=== PATIENT | male | born 1980 | race Caucasian/White ===

== ENCOUNTER 2017-08-15 20:36 | Emergency (ER) | payer OTHER ==
[~2017-08-15] VITALS: Ht 190.5 cm; Wt 108.9 kg
[~2017-08-15 20:36] MED LIST: AZITHROMYCIN 2250 MG PO; LEVAQUIN 500 M500 MG PO; LISINOPRIL10 MG PO; MAPAP325 MG PO; NAPROSYN500 MG PO; TRAMADOL 50 MG50 MG PO; VENTOLIN HFA 1818 GM INH; [UNRECOGNIZED DRUG - REMARK]
[2017-08-15 21:25] LABS: ABSOLUTE NEUTROPHILS 5.6 thou/uL (1.4-8.2); EOSINOPHILS 3.7 % (0.0-3.0); HEMATOCRIT 44.6 % (42.0-52.0); HEMOGLOBIN 15.4 gm/dL (14.0-18.0); LYMPHOCYTES 24.1 % (24.0-44.0); MCH 29.2 pg (26.0-34.0); MCHC 34.5 g/dL (28.0-37.0); MCV 84.7 fL (80.0-100.0); MONOCYTES 8.1 % (1.0-8.0); PLATELET COUNT 226 thou/uL (150-400); POLYS 63.1 % (36.0-66.0); RBC 5.27 mil/uL (4.50-6.00); WBC 8.9 thou/uL (4.0-11.0)
[2017-08-15 22:27] LABS: ANION GAP 5 mmol/L (7-16); BUN 12 mg/dL (7-18); CALCIUM 8.1 mg/dL (8.5-10.1); CHLORIDE 106 mmol/L (98-107); CO2 32 mmol/L (21-32); CREATININE 1.1 mg/dL (0.7-1.3); GLUCOSE 106 mg/dL (74-106); POTASSIUM 4.2 mmol/L (3.5-5.1); SODIUM 143 mmol/L (136-145); URINE BILIRUBIN NEGATIVE (Negative); URINE BLOOD NEGATIVE (Negative); URINE CLARITY CLEAR; URINE COLOR YELLOW; URINE GLUCOSE-RANDOM* NEGATIVE (Negative); URINE KETONES NEGATIVE (Negative); URINE LEUKOCYTES NEGATIVE (Negative); URINE NITRITE NEGATIVE (Negative); URINE PROTEIN (DIPSTICK) NEGATIVE (Negative); URINE UROBILINOGEN 0.2 E.U./dl (0.2-1.0)
[2017-08-15 22:33] LABS: ALBUMIN 3.5 g/dL (3.4-5.0); DIRECT BILIRUBIN < 0.1 mg/dL (<0.1-0.3); SGOT 20 U/L (15-37); SGPT 50 U/L (30-65); TOTAL BILIRUBIN 0.2 mg/dL (<0.1-1.0); TOTAL PROTEIN 6.8 g/dL (6.4-8.2)
== END 2017-08-15 23:59 | disposition home or self-care (01) ==
LOC: ER 20:36
PROVIDERS: Emergency Medicine
DX: K57.31 Diverticulosis of large intestine without perforation or abscess with bleeding (principal)

== ENCOUNTER 2017-10-14 03:46 | Emergency (ER) | payer OTHER ==
[~2017-10-14] VITALS: Ht 188 cm; Wt 117.9 kg
[2017-10-14 04:15] LABS: ABSOLUTE NEUTROPHILS 14.7 thou/uL (1.4-8.2); BASOPHILS 0.4 % (0.0-2.0); EOSINOPHILS 0.5 % (0.0-3.0); HEMATOCRIT 46.3 % (42.0-52.0); MCH 29.2 pg (26.0-34.0); MCHC 34.5 g/dL (28.0-37.0); MCV 84.6 fL (80.0-100.0); MONOCYTES 6.7 % (1.0-8.0); PLATELET COUNT 232 thou/uL (150-400); POLYS 83.4 % (36.0-66.0); RBC 5.47 mil/uL (4.50-6.00); RDW 14.1 % (10.5-14.5); WBC 17.7 thou/uL (4.0-11.0)
[2017-10-14 04:18] LABS: URINE BILIRUBIN NEGATIVE (Negative); URINE BLOOD 2+ (Negative); URINE CLARITY CLEAR; URINE COLOR YELLOW; URINE GLUCOSE-RANDOM* NEGATIVE (Negative); URINE KETONES NEGATIVE (Negative); URINE LEUKOCYTES-REFLEX NEGATIVE (Negative); URINE NITRITE-REFLEX NEGATIVE (Negative); URINE PROTEIN (DIPSTICK) NEGATIVE (Negative); URINE SPECIFIC GRAVITY 1.015 (1.005-1.035); URINE UROBILINOGEN 0.2 E.U./dl (0.2-1.0)
[2017-10-14 04:22] LABS: CALCIUM 8.6 mg/dL (8.5-10.1); CREATININE 1.4 mg/dL (0.7-1.3); POTASSIUM 3.5 mmol/L (3.5-5.1)
[2017-10-14 04:28] LABS: ALBUMIN 4.2 g/dL (3.4-5.0); TOTAL BILIRUBIN 0.7 mg/dL (<0.1-1.0)
[2017-10-14 04:32] LABS: CASTS None Seen /LPF (None Seen); MUCUS None Seen strn/LPF (None Seen); SQUAMOUS None Seen /LPF (0-3); URINE RBC 3-10 Few /HPF (0-2); URINE WBC-REFLEX 0-5 Rare /HPF (0-5)
[2017-10-14 04:33] LABS: BACTERIA-REFLEX None Seen /HPF (None Seen); CRYSTALS None Seen /LPF (None Seen)
[2017-10-14] MEDS ORDERED: FLOMAX0.4 MG PO (04:45)
[2017-10-14] MEDS ORDERED: MORPHINE SULFAT15 M3 PO (04:45)
[2017-10-14] MEDS ORDERED: ONDANSETRON HCL4 M2 PO (04:45)
== END 2017-10-14 06:41 | disposition home or self-care (01) ==
LOC: ER 03:46
PROVIDERS: Emergency Medicine
DX: N20.1 Calculus of ureter (principal); K21.9 Gastro-esophageal reflux disease without esophagitis

== ENCOUNTER 2018-05-22 08:31 | Emergency (ER) | payer OTHER ==
[~2018-05-22] VITALS: Ht 188 cm; Wt 129.3 kg
[~2018-05-22 08:31] MED LIST changes: +FLOMAX0.4 MG PO; +MORPHINE SULFAT15 M3 PO; +ONDANSETRON HCL4 M2 PO
[2018-05-22 09:02] LABS: ABSOLUTE NEUTROPHILS 8.7 thou/uL (1.4-8.2); BASOPHILS 0.4 % (0.0-2.0); EOSINOPHILS 2.6 % (0.0-3.0); HEMATOCRIT 45.3 % (42.0-52.0); HEMOGLOBIN 15.6 gm/dL (14.0-18.0); LYMPHOCYTES 16.5 % (24.0-44.0); MCH 28.5 pg (26.0-34.0); MCHC 34.5 g/dL (28.0-37.0); MCV 82.6 fL (80.0-100.0); MONOCYTES 4.5 % (1.0-8.0); PLATELET COUNT 228 thou/uL (150-400); RBC 5.49 mil/uL (4.50-6.00); RDW 13.4 % (10.5-14.5); WBC 11.5 thou/uL (4.0-11.0)
[2018-05-22 09:13] LABS: ANION GAP 7 mmol/L (7-16); BUN 16 mg/dL (7-18); CHLORIDE 105 mmol/L (98-107); CO2 30 mmol/L (21-32); CREATININE 1.4 mg/dL (0.7-1.3); GLUCOSE 118 mg/dL (74-106); POTASSIUM 3.4 mmol/L (3.5-5.1); SODIUM 142 mmol/L (136-145)
[2018-05-22 09:22] LABS: TROPONIN-I <0.06 ng/mL (<0.06)
[2018-05-22] MEDS ORDERED: PROMETH-CODEIN 65 ML PO (10:31)
[2018-05-22] MEDS ORDERED: TESSALON PERLE100 MG PO (10:31)
[2018-05-22 10:53] VITALS: BP 152/83
--- NOTE | 2018-05-22 11:06 | EKG ---
[address] [address] ELECTROCARDIOGRAM REPORT Name: BLAYNE SEALS Room #: [facility]#: [id number] Admission: 05/22/18 Attend Phys: Discharge: 05/22/18 Date of : 76 Report #: [id number] THIS REPORT FOR: //name// [facility] ED Test Date: 2018-05-22 Test Time: 08:35:35 Pat Name: BLAYNE SEALS Department: Room: Gender: M Backend Developer: WENDY : 1980 Requested By: Anibal Roblero Order Number: [id number] MD: Chris Luis Measurements Intervals [place] Rate: 90 P: 37 MD: 141 QRS: 5 QRSD: 88 T: 25 QT: 356 QTc: 436 Interpretive Statements Sinus rhythm Probable anteroseptal infarct, old Compared to ECG 07/12/2015 15:24:20 Myocardial infarct finding now present Electronically Signed On 05-22-2018 11:06:18 FORM COVERER by Chris Luis [email or web address] <ELECTRONICALLY SIGNED> By: Chris Luis MD 05/22/18 1106 D: [id number] Chris Luis MD /CAILIN
== END 2018-05-22 10:54 | disposition home or self-care (01) ==
LOC: ER 08:31
PROVIDERS: Emergency Medicine
DX: J40 Bronchitis, not specified as acute or chronic (principal); R11.2 Nausea with vomiting, unspecified; K21.9 Gastro-esophageal reflux disease without esophagitis